=== PATIENT | female | born 1950 | race Caucasian/White ===

== ENCOUNTER 2025-08-28 14:07 | Emergency (ER) | payer MEDICARE, OTHER, SELFPAY ==
--- OUTSIDE RECORDS SUMMARY | 2025-08-28 14:21 | XMS_ITS | Data Portability ---
Author Organization JORGE - Nicolás Lau [facility] [place] Address [address] JORGE Whitman [address] Assessment Encounter Date Assessment Date Assessment LastModified by Organization Details LastModified Time 01/16/2025 01/16/2025 A total of 60 minutes were spent in direct patient care, examination and charting for this visit. [email or web address] Not available 01/16/2025 21:01:08 02/13/2025 02/13/2025 A total of 45 minutes were spent in direct patient care, examination and charting for this visit. [email or web address] Not available 02/22/2025 02:26:24 Plan of Treatment Reminders Order Date Submit Date Provider Last Modified By Organization Details Last Modified Time Details Appointments None recorded . Lab surgical patholog y study 2024 025 [facility], [address], [address], [place], [address], 5 19:08:02 lipid panel, blood 2024 025 [facility], [address] [facility], [place], [address], 5 05:36:12 CBC 2024 025 [facility], [address] [facility], [place], [address], 5 04:46:48 CMP, serum or plasma 2024 025 [facility], [address], [place], [address], 04:46:48 ESR (erythro cyte sediment ation rate), blood [email or web address] [facility], [address], [place], [address], 21:48:05 C-reacti ve protein, quantita tive, serum or plasma [email or web address] [facility], [address], [place], [address], 14:05:16 Referral medical massage - Please call patient to schedule appointm ent. Thank you! 2024 [email or web address]; Ana Atwood, [address], [place], [address], 20:41:05 general surgeon referral [email or web address] [facility], [address], [place], [address], 00:24:43 counseli lisa referral - 74yo F. Recent grief reaction with family dynamic and stressor s precedin g the of her mother, followed by the of her mother. Desires counselchio gonzalez. 2024 025 [email or web address] Kasandra Hamm, [address], [address], [place], [address], 21:47:56 Procedures None recorded . Surgeries None recorded . Imaging MRI, lower extremit y, w/wo contrast - L medial thigh firm mass measurin g 1.5x2cm approxim ately. Unclear etiology . Evaluate for sarcoma vs. lipoma vs. other. No overlyin g skin changes. 2024 025 [facility], [address] , [place], [address], 16:03:26 Medication Orders amlodipi ne 5 mg tablet 2024 025 [facility][id number], [address] [facility], [place], [address], 18:22:07 losartan 100 mg tablet 2024 025 [facility] #[id number], [address] [facility], [place], [address], 18:22:07 losartan 100 mg tablet 2024 025 [facility] #[id number], [address] [facility], [place], [address], 21:14:23 Patient TargetsNo targets recorded. Patient Instructions Encounter Date Encounter Id Patient Instructions Last Modified By Organization Details Last Modified Time 01/16/2025 [id number] You were seen in clinic today by Dr. Flannery for the following concerns: 1. Rectal bleeding - I have sent labs to [facility], including blood counts, electrolytes and inflammatory markers. I have also referred you to Dr. Juan Jose Colorado for colonoscopy. 2. Neck stiffness/pain - I have referred you for medical massage with Ana Garber. 3. Complicated Grief - I have referred you to Nimo Hamm for counseling. Please follow-up with Dr. Flannery in 1-2 months for follow-up, at which time we will remove the skin lesion on your back. Please see your updated medication list, printed on a wallet-sized card for easy reference. This was updated today and reflects any medication changes or new medications from today's appointment. [email or web address] Not available 01/16/2025 14:23:11 02/13/2025 [id number] We discussed a v ariety of topics today. Here is where we landed on them. :) 1. Atorvastatin for high cholesterol: We are going to check your cholesterol and see where it is at. I have sent a lab to [facility]. You need to be fasting for this test, so go to the hospital any day (Mon-Sat) in the morning. It is ok to have black coffee or tea. For now, stay on Atorvastatin 20mg daily and we will see if this needs to be increased or changed once we have updated cholesterol levels. 2. Calcium and Vitamin D: I recommend 1200mg of Calcium daily and 5593-2464 IU of Vitamin D daily. 3. Hand Cramping: I suspect that your hand cramping when overusing it (such as chopping a whole roast) is due to electrolyte imbalances (low potassium, low magnesium) and/or dehydration. Both of these are more likely to happen with Hydrochlorothiazide diuretic, which you take for blood pressure. We are going to stop this medication (see below). I recommend you contine on a daily potassium supplement (20 mEq daily) and a daily Magnesium supplement. 4. High Blood Pressure: STOP Losartan-HCTZ combination pill. START increased dose of Losartan 100mg daily (sent to [facility]) HOLD amlodipine for the next week while monitoring your blood pressure. If BP >140/90, add back the Amlodipine 5mg daily and call the clinic or message the portal to let me know. If BP <140/90, just continue on the Losartan only. 5. Shortness of breath on an incline: I am not particularly concerned about this symptom, because it has been stable for you for years without worsening. However, if it began to worsen, I would recommend you to see a side seam machine operator (heart doc) and get an exercise stress test done. I suspect that if you practice belly breathing, breathing in through your nose and out through your mouth, the efficiency of your breathing would improve and you may not feel as short of breath on an incline. 6. Left Inner Thigh Mass: I am uncertain what is causing this fullness/mass in this area. I will reach out to Dr. Chun (radiologist) and get a recommendation for CT scan versus MRI to evaluate this area. I suspect he will want an MRI. I will call you when I have this information and will place the order up at [facility]. 7. Colonoscopy: You have a scheduled colonoscopy with Dr. Colorado next week. I will call to get the results of this when it has been completed. 8. Skin Findings: You have a few benign-appearing skin lesions on your right neck, chest area. Schedule back in clinic in the coming weeks to have a punch biopsy of the skin lesion on your back. 1 Not available 02/22/2025 02:05:44 Reason for Referral General Surgeon Referral for Gastrointestinal hemorrhage Referring Physician: Roxy Flannery [facility], Encounter Date: 01/16/2025 Counseling Referral for Grie f finding 74yo F. Recent grief reaction with family dynamic and stressors preceding the of her mother, followed by the of her mother. Desires counseling. Referring Physician: Roxy Flannery [facility], Encounter Date: 01/16/2025 Medical Massage for Chronic neck pain Please call patient to schedule appointment. Thank you! Referring Physician: Roxy Flannery [facility], Encounter Date: 01/16/2025 Results Created Date Observation Date Name Description Value Unit Range Abnormal Flag Note LastModifiedBy Organization Detail LastModifiedTime 04/09/2004/17/2025 PATHO LOGY REPOR T . COMMEN T Mater ial submi tted: . back - UPPER BACK RIGHT SIDE Not Available [facility] ([facility]) [address], [place], [address], 04/17/2025 19:08:02 04/09/2004/17/2025 PATHO LOGY REPOR T . 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 Note: The findi ngs are nonsp ecifi c, but given the provi ded clini edinson infor matio n of diso rder of pigme ntati on, the palm es could be cause d by post- infla mmato ry pigme ntary alter ation . No pigme nted neopl asm or diagn ostic derma titis is ident ified . Secti ons show an essen tiall y mesfin l epide rmis. There is super ficia l derma l pigme nt incon tinen ce with littl e to no infla mmati on. A PAS stain is negat enrico for funga l hypha e (cont rol posit enrico). A Melan -A immun ohist ochem ical stain is used to highl ight melan ocyte s. This shows only scatt ered melan ocyte s with no atypi edinson melan ocyti c proli ferat ion ident ified . Addit ional deepe r secti ons were exami delfina. * This test was devel oped and the perfo rmanc e polo cteri stics were valid ated by [facility]. It has not been clear ed or appro geni by the U.S. Food and Drug Admin istra tion. MRV 04/17 1509 Local Not Available [facility] ([facility]) [address] [facility], [place], [address], 04/17/2025 19:08:02 04/09/2004/17/2025 PATHO LOGY REPOR T . COMMEN T Jewel ordonez d: . Filiberto Griffin MD, [place] topat holog ist NPI- [id number] Not Available [facility] ([facility]) [address] [facility], [place], [address], 04/17/2025 19:08:02 04/09/2004/17/2025 PATHO LOGY REPOR T . COMMEN T Gross descr iptio n: . Recei geni in forma yue label ed with two patie nt ident ifier s and tors o, upper back right side per requi sitio n, and consi sts of a 0.[address] punch of skin excis ed to the depth of 0.1 cm. The surfa ce of the skin is stevens, granu lar, and wrink led. The speci men is inked and submi tted in toto in casse tte A1. (DL:c [id number]) /GAVIN 04/14 2309 Local Not Available [facility] ([facility]) [address] [facility], [place], [address], 04/17/2025 19:08:02 04/09/20 25 04/17/2025 PATHO LOGY REPOR T . COMMEN T Patho logis t provi ded ICD-1 0: L81.9 Not Available [facility] ([facility]) [address] [facility], [place], [address], 04/17/2025 19:08:02 04/09/2004/17/2025 PATHO LOGY REPOR T . COMMEN T CPT . 01737 1, W2006 1 Not Available [facility] ([facility]) [address] [facility], [place], [address], 04/17/2025 19:08:02 03/03/20 25 03/03/2025 MRI, lower extre mity, w/wo contr ast No observ ation record ed. [facility] [address] [facility], [place], [address], 03/08/2025 14:37:17 06/28/20 25 06/28/2025 MAMMO , scree jaida, digit al, bilat eral, w/ CAD No observ ation record ed. [email or web address] [facility] [address] [facility], [place], [address], 07/03/2025 12:14:40 07/03/20 25 07/03/2025 MAMMO , diagn ostic , tomos ynthe sis, unila teral No observ ation record ed. [facility] [address] [facility], [place], [address], 07/04/2025 20:44:24 07/03/20 25 07/03/2025 US, breas t, unila teral No observ ation record ed. [facility] [address] , [place], [address], 07/04/2025 20:44:25 07/06/20 25 07/06/2025 MRI, breas t, unila teral , w/wo contr ast No observ ation record ed. [facility] [address] , [place], [address], 07/06/2025 23:04:33 07/10/20 25 07/10/2025 stere otact ic breas t biops y (PROC ) No observ ation record ed. [facility] [address], [place], [address], 07/14/2025 13:21:53 07/10/20 25 07/10/2025 stere otact ic breas t biops y (PROC ) No observ ation record ed. [facility] [address], [place], [address], 07/14/2025 13:21:38 07/16/20 25 07/10/2025 stere otact ic breas t biops y (PROC ) No observ ation record ed. [email or web address], [place], [address], 07/20/2025 10:29:13 07/23/20 25 07/23/2025 US, breas t, unila teral No observ ation record ed. [facility] [address] [facility], [place], [address], 08/01/2025 21:29:40 08/06/20 25 08/06/2025 DEXA, axial skele ton + verte bral fract ure asses sment No observ ation record ed. [facility] [address] [address], [place], [address], 08/08/2025 14:08:05 Result Notes None recorded. Problems Name Problem SNOMED Code Status Onset Date Resolution Date Notes Provider Name and Address Organization Details Recorded Time Late insomnia 332270761 Active 2024 Difficulti es with sleep maintenanc e. Intermitte nt use of Ambien. Didn't tolerate Lunesta, ER Ambien or Melatonin due to AM grogginess . 01/16/25: Recommend trial of Valerian Root. May benefit from Trazodone 25-50mg qHS in the future if not improving [place] [address], [place], [address] 5 02:24:45 Gastrointe stinal hemorrhage 22849719 Active 202401/16/25: Referred for colonoscop [place] [address], [place], [address] 5 21:14:57 Grief finding 238842913 Active 2024 Referred for counseling , Nimo Hamm (01/16/25) [place] [address], [place], [address] 5 21:15:06 Essential hypertensi on 07588327 Active 2024 Changed to single agent Losartan 100mg daily as of 02/13/25. Previously on HCTZ 25mg and amlodipine 5mg along with lower dose of Losartan (50mg[place] [address], [place], [address] 5 02:24:28 Hyperlipid emia 79464813 Active 2024 On Atorva 20mg daily. 02/13/25 repeat lipids ordered. Repeat lipids reviewed 05/01/25 without any need for change in Atorvastat in dose. LDL 109. HDL 82. [place] [address], [place], [address] [place] [address] 5 14:50:18 Mass of lower limb 854038894 Active 2024 Left medial thigh mass roughly 1.5x2cm. Referred for MRI O 02/13/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 Referred 07/14/[address] Iglesias, [place] [address], [place], [address] [place] [address] 5 13:20:39 Osteoporos is 07395603 Active 2024 [facility] 08/06/25: L-spine, Tscore -2.6 (osteoporo sis) Femur neck, Tscore -2.2 (osteopeni a) Total hip, Tscore -1.9 (osteopeni a) FRAX: 10-year major fracture risk 13%. 10-year hip fracture risk 3.2%. IMPRESSION : [place] [address], [place], [address] [place] [address] 5 12:20:54 Notes:Some problems listed i n Documents: #[id number], #[id number] could not be added to this patient's chart. Please review these documents and add these problems to the patient's chart manually as needed. Problem Notes None recorded. Procedures Surgical History Date Name Laterality Status Provider Name and Address Organization Details Recorded Time 04/09/2025 [place] [address], [place], [address] 04/13/2025 11:41:32 Imaging Results None recorded. Procedure Notes None recorded. Medical Equipment None Reported. Allergies Allergen ID Allergen Name Allergen Category Reaction Reaction Severity Criticality Documentation Date Start Date Code Code System Note Provider Name and Address Organization Details Recorded Time 2241 Substance with sulfonami de structure and antibacte rial mechanism of action (substanc e) medicatio n Not available Not available Not available 01/16/2025 36023 8003 SNOMED [facility] 13:17:29 2242 wheat preparati on food,medi cation Not available Not available Not available 01/16/2025 73321 52 RxNorm [facility] 13:17:37 2243 Product containin g penicilli n (product) medicatio n Not available Not available Not available 01/16/2025 85167 8001 SNOMED [facility] 13:17:49 2641 Non-stero idal anti-infl ammatory agent (substanc e) medicatio n gi bleed Not available Not available 02/13/2025 32525 5008 SNOMED [facility] 19:03:33 2642 aspirin medicatio n gi bleed Not available Not available 02/13/2025 1191 RxNorm [facility] 19:03:33 4998 acetamino phen medicatio n Not available Not available Not available 07/13/20252019 161 RxNorm Blood in BM unrec ogniz ed react ion (text : Unknmelba ramachandran, code: 31814 5006) (from exter nal sourc e) Not Available precious - External Data Service - prod 14:49:01 4999 aluminum aspirin Not available Not available Not available Not available 07/13/20252019 611 RxNorm Aller gy liste d on offic e note from PCP. unrec ogniz ed react ion (text : Unkno wn, code: 60576 5006) (from [facility]) Not Available precious - External Data Service - prod 5 14:49:01 5000 dipyridam ole medicatio n Not available Not available Not available 07/13/20252019 3521 RxNorm Aller gy liste d on offic e note from PCP. unrec ogniz ed react ion (text : Alen ramachandran, code: 21219 5006) (from [facility]) Not Available precious - External Data Service - prod 14:49:01 5001 ibuprofen medicatio n Not available Not available Not available 07/13/20252019 5640 RxNorm Aller gy liste d on offic e note from PCP. unrec ogniz ed react ion (text : Alen ramachandran, code: 85861 5006) (from [facility]) Not Available precious - External Data Service - prod 5 14:49:01 5002 metronida zole medicatio n Not available Not available Not available 07/13/20252019 6922 RxNorm React ion when consu suleiman red dye in foods unrec ogniz ed react ion (text : Alen ramachandran, code: 94606 5006) (from [facility]) Not Available precious - External Data Service - prod 14:49:01 5003 clopidogr el medicatio n Not available Not available Not available 07/13/20252019 34494 RxNorm Aller gy liste d on offic e note from PCP. unrec ogniz ed react ion (text : Unknmelba wn, code: 60001 5006) (from [facility] e) Not Available precious - External Data Service - prod 5 14:49:01 5004 Plavix medicatio n Not available Not available Not available 07/13/2025 46336 2 RxNorm Not Available precious - External Data Service - prod 5 14:51:56 5125 omeprazol e medicatio n Not available Not available Not available 07/16/2025 7646 RxNorm Not Available precious - External Data Service - prod 13:47:15 Medications Name Sig Start Date Stop Date Status Note LastModified by Organization Details LastModified Time Xanax 0.5 mg tablet 1-2 tablets twice daily as needed for severe anxiety 2024 active Not Available Not Available Not Avai lable atorvastati n 20 mg tablet TAKE ONE TABLET BY MOUTH DAILY 2024 active Not Available Not Available Not Avai lable Depo-Medrol 40 mg/mL suspension for injection Take by injection route. 2023 active Not Available Not Available Not Avai lable atovaquone 250 mg-proguani l 100 mg tablet Take 1 tablet every day by oral route. active Not Available Not Available No t Available amlodipine 5 mg tablet Take 1 tablet twice a day by oral route for 45 days. 2024 active Not Available Not Available Not Avai lable tramadol 50 mg tablet Take 1 tablet every 6 hours by oral route. 02/13 completed Not Available Not Available Not Available calcium citrate 250 mg tablet Take 2 tablets by oral route in the morning. active Not Available Not Available No t Available omeprazole 20 mg capsule,del ayed release TAKE ONE CAPSULE BY MOUTH DAILY 2024 active Not Available Not Available Not Avai lable zolpidem 10 mg tablet Take 1 tablet every day by oral route. 2024 active Not Available Not Available Not Avai lable losartan 50 mg-hydrochl orothiazide 12.5 mg tablet Take 1 tablet every day by oral route. 02/13 completed Not Available Not Available Not Available losartan 100 mg tablet Take 1 tablet every day by oral route for 90 days. 2024 active Not Available Not Available Not Avai lable bupivacaine (PF) 0.25 % (2.5 mg/mL) injection solution Take 3 mL by injection route. 02/13 completed Not Available Not Available Not Available omega-3 acid ethyl esters 1 gram capsule Take 2 capsules twice a day by oral route for 30 days. 2024 active Not Available Not Available Not Avai lable magnesium active Not Available Not Cathryn ilable Not Available Co Q-10 active Not Available Not Avail able Not Available vitamin E active Not Available Not Cathryn ilable Not Available vitamin B complex active Not Available Not Available Not Available Vitamin D active Not Available Not Cathryn ilable Not Available [place] 3 active Not Available Not Avail able Not Available vitamin A-vitamin D3 5,000 unit-400 unit capsule Take by oral route. active Not Available Not Available No t Available compounded medication 2022 active Not Available Not Available Not Avai lable K1-1000 active Not Available Not Avail able Not Available Vitals Date Recorded Body height Body mass index (BMI) Body weight Heart rate Respiratory rate Oxygen saturation Body temperature Systolic And Diastolic Provider Name and Address Organization Details Last Updated DateTime 5 151.38 cm 28.1 kg/m2 97877.1 2 g 66 /min 18 /min 98 % 98.4 [degF] 128/62 mm[Hg] [facility] 5 13:16:20 Date Recorded Body height Body mass index (BMI) Body weight Heart rate Respiratory rate Oxygen saturation Body temperature Systolic And Diastolic Provider Name and Address Organization Details Last Updated DateTime 5 151.38 cm 28.3 kg/m2 73780.7 1 g 74 /min 18 /min 96 % 98.1 [degF] 133/77 mm[Hg] [facility] 5 19:03:09 Date Recorded Body height Oxygen saturation Heart rate Respiratory rate Body temperature Systolic And Diastolic Provider Name and Address Organization Details Last Updated DateTime 5 151.38 cm 95 % 74 /min 18 /min 98.2 [degF] 134/82 mm[Hg] [facility] 18:08:31 Social History None recorded. Functional Status None recorded. Mental Status None recorded. Family History Nothing Reported. Medical History No medical history recorded. Gynecological History Statement/Question Response Abnormal Pap N Current Control Method menopause Sexually Active? N Post Menopausal Bleeding N Obstetrics History GPAL:G 0 P 0 0 0 0 Immunizations Vaccine Type Date Status Note Provider Nam e and Address Organization Details Recorded Time COVID-19, mRNA, LNP-S, PF, 100 mcg/0.5mL dose or 50 mcg/0.25mL dose 2 completed Not Available [facility] 04/09/2025 17:59:27 COVID-19, mRNA, LNP-S, PF, 30 mcg/0.3 mL dose 1 completed Not Available [facility] 04/09/2025 17:59:27 COVID-19, mRNA, LNP-S, PF, 30 mcg/0.3 mL dose 1 completed Not Available [facility] 04/09/2025 17:59:27 COVID-19, mRNA, LNP-S, PF, 30 mcg/0.3 mL dose 1 completed Not Available [facility] 04/09/2025 17:59:27 COVID-19, mRNA, LNP-S, PF, 50 mcg/0.5 mL 3 completed Not Available [facility] 04/09/2025 17:59:27 COVID-19, mRNA, LNP-S, PF, brannon-sucrose, 30 mcg/0.3 mL 4 completed Not Available [facility] 04/09/2025 17:59:27 IPV 3 completed Not Available [facility] 04/09/2025 17:59:27 Influenza, adjuvanted, quadrivalent, PF 0 completed Not Available [facility] 04/09/2025 17:59:27 Influenza, adjuvanted, quadrivalent, PF 2 completed Not Available [facility] 04/09/2025 17:59:27 Influenza, adjuvanted, quadrivalent, PF 3 completed Not Available [facility] 04/09/2025 17:59:27 Influenza, high-dose, trivalent, PF 8 completed Not Available [facility] 04/09/2025 17:59:27 Influenza, high-dose, trivalent, PF 9 completed Not Available [facility] 04/[facility] 17:59:27 Influenza, recombinant, trivalent, PF 4 completed Not Available [facility] 04/09/2025 17:59:27 OPV, trivalent 2 completed Not Available [facility] 04/09/2025 17:59:27 Pneumococcal conjugate PCV 13 8 completed Not Available [facility] 04/09/2025 17:59:27 Td (adult), 2 Lf tetanus toxoid, preservative free, adsorbed 2 completed Not Available [facility] 04/09/2025 17:59:27 Td (adult), 2 Lf tetanus toxoid, preservative free, adsorbed 1 completed Not Available [facility] 04/09/2025 17:59:27 Tdap 1 completed Not Available [facility] 04/09/2025 17:59:27 typhoid, ViCPs 3 completed Not Available [facility] 04/09/2025 17:59:27 typhoid, unspecified formulation 6 completed Not Available [facility] 04/09/2025 17:59:27 typhoid, unspecified formulation 9 completed Not Available [facility] 04/09/2025 17:59:27 typhoid, unspecified formulation 7 completed Not Available [facility] 04/09/2025 17:59:27 typhoid, unspecified formulation 9 completed Not Available [facility] 04/09/2025 17:59:27 yellow fever live 1 completed Not Available [facility] 04/09/2025 17:59:27 Past Encounters Encounter ID Performer Location Encounter Start Date Encounter Closed Date Diagnosis/Indication Diagnosis SNOMED-CT Code Diagnosis ICD10 Code Diagnosis IMO Codes Diagnosis Note [id number] Roxy Flannery MD [facility] [address] [facility] [place] [address] 01/16/2025 13:02:15 01/16/2025 14:27:40 Gastrointestinal hemorrhage [id number] K62.5 [id number] Patient remotely diagnosed with UC following colonoscop y by Dr. Cueva (>15 years prior). She subsequent ly had multiple colonoscop ies that did not reveal UC and was eventually told she does not have UC by Dr. Moody. She has a wheat intoleranc e, grade 3 hemorrhoid s and a history of hemorrhoid al bleeding. She reports smaller caliber stools for the past 2.5 months, which is a new finding and has not accompanie d bouts of hemorrhoid al bleeding or hemorrhoid al symptoms in the past. No family hx of colon cancer. Last colonoscop y [address] Moody. 01/16/25 PLAN:- Check labs (CBC, CMP, ESR and CRP)- Refer for colonoscop y- Recommend going back to gluten free, wheat free diet and reducing sugar, as she has noticed reduced hemorrhoid al symptoms when she is doing clean eating- Patient has also previously benefitted from a slippery elm supplement , provided by Dr. Lopez, which she has recently started back on to see if this reduced hemorrhoid al symptoms and bleeding Grief finding [id number] F43.20 [id number] Will refer to Nimo Hamm for counseling . Chronic neck pain [id number] 107 M54.2 G89.29 [id number] Refer for medical massage. 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 Able to get to bed, but struggles to remain asleep, often waking 1-2 hours after sleep initiation and often waking and unable to go back to sleep after 4.5-5 hours. Has used Ambien intermitte ntly, mostly when traveling and unable to optimize her sleep surroundin gs. Hopeful for a supplement that could help her to stay asleep throughout the night, ideally getting 6-8 hours of sleep. Has trialed Melatonin, which has caused her to feel groggy in the AM. Lunesta caused AM grogginess as well. ER Ambien also caused fatigue in the AM.- Could trial Valerian root, OTC supplement - May benefit from Trazodone at low dose (25-50mg qHS) if Valerian root is not effective for insomnia with difficulti es maintainin g sleep. [id number] Roxy Flannery MD [facility] [address] [facility] [address] 02/13/2025 18:53:18 02/13/2025 20:21:27 Gastrointestinal hemorrhage [id number] K62.5 [id number] Patient remotely diagnosed with UC following colonoscop y by Dr. Cueva (>15 years prior). She subsequent ly had multiple colonoscop ies that did not reveal UC and was eventually told she does not have UC by Dr. Moody. She has a wheat intoleranc e, grade 3 hemorrhoid s and a history of hemorrhoid al bleeding. She reports smaller caliber stools for the past 2.5 months, which is a new finding and has not accompanie d bouts of hemorrhoid al bleeding or hemorrhoid al symptoms in the past. No family hx of colon cancer. Last colonoscop y [address] Moody. 01/16/25 (PRIOR)- Check labs (CBC, CMP, ESR and CRP)- Refer for colonoscop y- Recommend going back to gluten free, wheat free diet and reducing sugar, as she has noticed reduced hemorrhoid al symptoms when she is doing clean eating- Patient has also previously benefitted from a slippery elm supplement , provided by Dr. Lopez, which she has recently started back on to see if this reduced hemorrhoid al symptoms and bleeding 02/13/25 PLAN:- Has scheduled colonoscop y with [facility] general surgery next week- Plan for hemorrhoid procedure at that time as well- Will obtain records, when available Grief finding [id number] F43.20 88778 In with online counselor. Has found this helpful. Late insomnia [id number] F51.09 79653 Insomnia with early waking. Able to get to bed, but struggles to remain asleep, often waking 1-2 hours after sleep initiation and often waking and unable to go back to sleep after 4.5-5 hours. Has used Ambien intermitte ntly, mostly when traveling and unable to optimize her sleep surroundin gs. Hopeful for a supplement that could help her to stay asleep throughout the night, ideally getting 6-8 hours of sleep. Has trialed Melatonin, which has caused her to feel groggy in the AM. Lunesta caused AM grogginess as well. ER Ambien also caused fatigue in the AM.- Could trial Valerian root, OTC supplement - May benefit from Trazodone at low dose (25-50mg qHS) if Valerian root is not effective for insomnia with difficulti es maintainin g sleep. 02/13/25 PLAN:- Trial CALM with melatonin, L-thionine , JOSE ANGEL for sleep Hyperlipidemia [id number] E78.49 [id number] Currently on Atorvastat in 20mg daily. Is concerned about whether or not this is a sufficient dose. 02/13/25 PLAN:- Check fasting cholestero l- Determine ASCVD 10-year risk and whether or not statin needs to be intensifie d Essential hypertension [id number] I10 76767 Well controlled at this time, but with adverse side effect of muscle cramping that may be due to dehydratio n and/or electrolyt e derangemen t, which would be made worse with HCTZ. Will therefore try to come off of HCTZ. Current regimen prior to changes made today include: Losartan 50mg - HCTZ 25mg combinatio n pill and Amlodipine 5mg daily. 02/13/25 PLAN:STOP Losartan-H CTZ combinatio n pill.START increased dose of Losartan 100mg daily (sent to [facility])HO LD amlodipine for the next week while monitoring your blood pressure.I f BP >140/90, add back the Amlodipine 5mg daily and call the clinic or message the portal to let me know.If BP <140/90, just continue on the Losartan only. Mass of lower limb [id number] R22.42 [id number] Patient found to have mass of medial L thigh. Concerning for deep lipoma vs. sarcoma vs. other. Will need to further evaluate with MRI of the Lower extremity with and without contrast. On palpation, 2x1.5cm in size. Actinic keratosis [id number] L57.0 514907 Concern for AK on R thoracic back. Will RTC for punch biopsy for same in coming weeks. Noted to have two SKs. Benign in appearance . Reassuranc e provided. Cramp [id number] R25.2 11234 See HTN above. Trying to come off of HCTZ to see if this improves symptom [id number] Roxy Flannery MD [facility] [address] [place] [address] [place] [address] 04/09/2025 17:57:47 04/09/2025 18:47:23 Hypertensive disorder [id number] I10 [id number] 02/13/25 (PRIOR):We ll controlled at this time, but with adverse side effect of muscle cramping that may be due to dehydratio n and/or electrolyt e derangemen t, which would be made worse with HCTZ. Will therefore try to come off of HCTZ. Current regimen prior to changes made today include: Losartan 50mg - HCTZ 25mg combinatio n pill and Amlodipine 5mg daily.STOP Losartan-H CTZ combinatio n pill.START increased dose of Losartan 100mg daily (sent to [facility])HO LD amlodipine for the next week while monitoring your blood pressure.I f BP >140/90, add back the Amlodipine 5mg daily and call the clinic or message the portal to let me know.If BP <140/90, just continue on the Losartan only. 04/09/25 PLAN:- Refill Amlodipine 5mg daily and Losartan 100mg daily for 90 days Pigmented skin lesion of uncertain nature of trunk [id number] L81.9 [id number] Punch biopsy sent today. Health Concerns Section Related Observation LastModified by Organization Detai ls LastModified Time None Recorded Concern Status LastModified by Organization Details LastModified Time None Recorded Advance Directives Directive None Recorded Payers Insurance Date Sequence Insurance Name Policy Number Policy Red Covered Member ID Red Member ID Guarantor Name 04/13/2025 2 [facility] [id number] Geetha Cisneros [id number] Geetha Blayne 01/16/2025 1 *SELF PAY* Sa mamadou Cisneros 02/13/2025 1 [place]ICARE) Geetha Cisneros [id number] [facility] 04/06/2025 1 [place] Geetha Cisneros [id number] Geetha [facility] Notes Date Note Type Note Provider Name and Address Organization Details Recorded Time 01/17/20 text/htm emilie Cisneros is a 74 year old female who presents to [facility]. She is transferring care from Dr. Ortega at [facility]. PMHx:1. Family hypercholesterolemia - LDL >200 off of statin2. Primary insomnia3. GARRET. Dx 2013. Previously on CPAP. No longer, cannot tolerate mask. 15-20lb difference.4. Reina's metatarsalgia5. Otosclerosis of the LEFT ear - s/p 3 surgeries6. HTN7. Mild mitral valve regurgitation - on TTE . GERD9. Ulcerative Bfqevbe30. Osteoporosis. Last CT BMD 06/2024. No recent DEXA.11. Cupipcvbtdx28. Superior semicircular canal dehiscence syndrome - Dx at [facility]13. Calcific tendonitis of L shoulder - MRI 04/20/24. Seen by Dr. Younger. Referred to PT. PSHx:1. 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 No recreational drugs. Family Hx:1. Mother, [place] @ age 802. Mother osteoporosis3. Mother Diabetes mellitus4. Father carcinoma of the lung, age 875. Father, CABG x5 vessel, age 806. Brother, metastatic cancer HCM:- Last CT bone mineral density 06/2024 @ [facility]. May benefit from DEXA vs. continued CT BMD- Cervical cancer screening: May be due for pap smear.- Colon cancer screening: Colonoscopy 10/2017. No family hx. May benefit from Cologuard. Acute Concerns: INTERNAL BLEEDING:BRBPR since October,. If she takes NSAIDs or ASA she bleeds. If she takes wheat she bleeds. Accidnetal ingestion. Bright red blood around. Some mucous. Stool is all narrow. she hasn't had solid stools for years. S/p parasitic infection. She has had [address] Moody went in, she looked pristine. She sees blood 1/2 the time. She was diagnosed with ulcerative colitis. Then she saw Maxx Lopez. She is on a supplement with slippery elm. She has had a change in diet, but this was AFTER. Longstanding loose stools. ACUTE GRIEF REACTION:Patient has acute grief reactions after the passing of her mother. Her sister and her have also become estranged during this period of time in which her mother was ill. There are legal stressors around her sister attempting to exploit her mother's estate and patient has been under significant stress surrounding these events. MUSCULAR TENSION:Muscular tension in her neck and shoulders. and not sleeping well. Massage has been great[facility]. She would like a referral for medical massage. INSOMNIA:Sleep and sleeping x5 hours. She was taking Ambien while travelling. She hasn't taken it since getting back. Her Generally can fall asleep. She tried a lunesta once. She can fall asleep if she smokes marijuana. She gets paranoid, lives alone. [place]. If she drinks alcohol, she is more likely to take Ambien. Goes to bed irregularly. Goes to bed between 10-12am, gets up at 4-5am. Once she is up, she's up. Naps during the day at times, though this does not change [place] [address], [place], [address], JORGE [facility] 01/26/2025 11:58:34 02/14/20 25 text/htm l Patient presents to clinic for multiple concerns. HYPERLIPIDEMIA:Patient is currently on Atorvastatin 20mg daily. She has not had recent cholesterol tests. We will obtain fasting labs and see if this dose of statin is effective, or if she would benefit from a higher intensity statin regimen. Tolerating statin well. BONE HEALTH:Patient wonders about optimal supplement dosing for Calcium and Vitamin D given that she is post-menopausal. HAND CRAMPING:Patient reports hand cramps with use. Specifically when chopping a whole roast or doing other stamina-requiring activities that involve hand use. She is on HCTZ for HTN. She notes some muscle cramps. We discussed that this may be due to electrolyte derangement (hypomag, hypok) associated with HCTZ use and/or dehydration. When not cramping due to overuse, she has full ROM of the joints of the bilateral hands and wrists. She does not have any triggering fingers etc. HYPERTENSION:Currently on HCTZ-Losartan combination pill (Losartan 50mg, HCTZ 25mg). She is also on Amlodipine. Goal BP is <140/90. Currently well controlled on current regimen. No exertional CP, dyspnea or exercise intolerance. She is very physically active, long hikes, treks etc. She often gets SOB when initiating exercising, but this has been longstanding since her youth and has not worsened recently or over time. ? Inefficient breathing. LEFT INNER THIGH MASS:Patient has noticed a left inner thigh mass. She is not certain when it first showed up, but noticed in in the past few months. Since first noticing it, she has not noticed any significant interval growth. No symptoms of pain, overlying skin changes etc. SKIN LESIONS:Patient has a few benign-appearing skin lesions on her right neck and mid-chest area. She also has a spot on the R thoracic back, to the right of midline that becomes slightly crusted/scabbed over. Concerning for AK. Discussed returning to clinic for punch biopsy. UPCOMING COLONOSCOPY / RECTAL BLEEDING / HEMORRHOIDS:Patient was referred to general surgery for colonoscopy and rectal bleeding. She has a history of hemorrhoids, which will also be addressed at the time of this surgery. Patient is scheduled for next week. We will obtain records s/p colonoscopy [place] [address] [address], [place], [address], [facility] 02/22/2025 02:26:28 04/09/20 25 text/htm l ROS as noted in the HPI Geetha Cisneros is a 74yo F who presents for punch biopsy of bothersome, pigmented skin lesion on her right back. This skin lesion has been itchy for years, scabbing with slough when scratched and growing back when forcefully removed with scratching/excoriation. It has not previously been biopsied. Patient was having some blood in stools. She was referred for colonoscopy and also underwent hemorrhoid treatment at the same time. She has gotten back on Ultraclear, a naturopathic supplement recommended for her by Dr. Lopez, and is no longer having blood in her stools. She has gained 8lbs while utilizing this supplement and is trying to lose weight. Patient has HTN. She is in need of a refill of her BP meds, including Amlodipine [place] [address] [address], [place], [address], [facility] 04/13/2025 11:43:09 OBGyn Episode No OBEpisode recorded.
[2025-08-28 14:51] VITALS: BP 144/64; PULSE 76; RESP 17; TEMP 37.4; O2SAT 98; BMI 27.9
[2025-08-28 16:07] LABS: Add Manual Diff / Slide Review NO; Hematocrit 39.4 % (36-46); Hemoglobin 13.3 g/dL (12.0-16.0); Lymphocytes Absolute Auto 2700 /uL (1100-4500); Mean Corpuscular HGB Conc 33.9 % (30-36); Mean Corpuscular Hemoglobin 28.1 PG (26-34); Mean Corpuscular Volume 82.9 fL (80-100); Platelet Count 250 X10^3/uL (150-400)
[2025-08-28 16:12] LABS: Lactate (Lactic Acid) 1.1 mmol/L (0.7-2.1)
[2025-08-28 16:14] LABS: Alanine Aminotransferase 24 IU/L (<35); Albumin 4.9 g/dL (3.5-5.0); Albumin Globulin Ratio 1.6 (1.0-2.8); Alkaline Phosphatase 87 U/L (38-126); Blood Urea Nitrogen 18 mg/dL (7-17); Calcium 9.9 mg/dL (8.4-10.2); Carbon Dioxide 28 mmol/L (22-32); Chloride 105 mmol/L (98-107); Estimated Glomerular Filt Rate > 60 mL/min (>60); Globulin 3.0 g/dL (1.7-4.1); Glucose 96 mg/dL (70-99); HEMOLYSIS < 15 (0-50); Potassium 3.8 mmol/L (3.4-5.1); Sodium 142 mmol/L (137-145); Total Protein 7.9 g/dL (6.3-8.2)
--- NOTE | 2025-08-28 16:27 | ED_ITS ---
HPI - Wound/Laceration General Chief Complaint: Wound/Laceration Stated Complaint: possible right Breast Infection, cancer patient Time Seen by Provider: 08/28/25 16:23 Source: patient Mode of arrival: Family Vehicle History of Present Illness HPI narrative: 75-year-old female history of breast cancer status post biopsy 3 weeks ago presents with right breast pain specifically around the areola feels more swollen and tender to touch over the last few days on 08/06/25. Patient denies fever chills body aches chest pain shortness breath leg pain leg swelling. She has an upcoming appointment on September 18 to see the oncologist again and is on her way to [place] for trip and wanted to be safe nothing acutely was going on. Other than what is stated 14 point review system is negative. Related Data Allergies Allergy/AdvReac Type Severity Reaction Status Date / Time Penicillins Allergy Rash Verified 08/28/25 14:53 Sulfa (Sulfonamide Allergy Rash Verified 08/28/25 14:53 Antibiotics) NSAIDS (Non-Steroidal AdvReac bleeding Verified 08/28/25 14:53 Anti-Inflamma Review of Systems Review of Systems ROS Unobtainable: All systems reviewed & are unremarkable except as noted in HPI and below Patient History Social History Smoking Status: Former smoker Smoking Status: Former smoker tobacco type: cigarettes Exam Narrative Exam Narrative: GENERAL: [75] year old patient appears stated age. Well-developed patient, in mild distress. HEAD: Atraumatic. Normocephalic. EYES: Pupils equal round and reactive. Extraocular motions intact. No scleral icterus. No injection or drainage. NECK: Trachea midline. Non tender EXTREMITIES: No edema or joint tenderness. BACK: Nontender without deformity or crepitance. No flank tenderness. NEURO: AOx3. SKIN: No rash or erythema of visible areas Initial Vital Signs Initial Vital Signs: Vital Signs Temperature 99.3 F 08/28/25 14:51 Pulse Rate 76 08/28/25 14:51 Respiratory Rate 17 08/28/25 14:51 Blood Pressure 144/64 H 08/28/25 14:51 Pulse Oximetry 98 08/28/25 14:51 Oxygen Delivery Method Room Air 08/28/25 14:51 Course Orders Ordered: ED Orders 08/28/25 15:40 Blood Culture Stat CBC Auto Diff [Complete Blood Count AUTO DIFF] Stat CMP [Comprehensive Metabolic Panel] Stat Lactate (Lactic Acid) Stat 08/28/25 17:09 breast RT limited Stat Vital Signs Vital signs: Vital Signs - 8 hr 08/28/25 14:51 08/28/25 17:06 08/28/25 17:08 Temperature 99.3 F Pulse Rate 76 69 69 Respiratory Rate 17 Blood Pressure 144/64 H Pulse Oximetry 98 92 98 Oxygen Delivery Method Room Air 08/28/25 17:08 08/28/25 17:30 08/28/25 17:31 Temperature Pulse Rate 63 59 L Respiratory Rate 16 Blood Pressure 174/73 H Pulse Oximetry 99 98 Oxygen Delivery Method Room Air 08/28/25 17:31 Temperature Pulse Rate Respiratory Rate Blood Pressure 150/66 H Pulse Oximetry Oxygen Delivery Method MDM - Wound/Laceration Lab Data 08/28/25 15:40 08/28/25 15:40 Labs: Lab Results 08/28/25 Range/Units 15:40 WBC 7.0 (4.5-11.0) X10^3/uL RBC 4.75 (4.0-5.2) X10^6/uL Hgb 13.3 (12.0-16.0) g/dL Hct 39.4 (36-46) % MCV 82.9 (80-100) fL MCH 28.1 (26-34) PG MCHC 33.9 (30-36) % RDW 13.6 (11.6-14.8) % Plt Count 250 (150-400) X10^3/uL Neut % (Auto) 52.6 (50-75) % Lymph % (Auto) 38.8 (25-40) % Concho % (Auto) 7.2 (3-14) % Eos % (Auto) 1.0 L (2-4) % Baso % (Auto) 0.4 (0-2) % Neut # (Auto) 3700 (8659-5615) /uL Lymph # (Auto) 2700 (1299-9055) /uL Concho # (Auto) 500 (0-900) /uL Eos # (Auto) 100 (0-450) /uL Baso # (Auto) 0 (0-100) /uL Sodium 142 (137-145) mmol/L Potassium 3.8 (3.4-5.1) mmol/L Chloride 105 (98-107) mmol/L Carbon Dioxide 28 (22-32) mmol/L BUN 18 H (7-17) mg/dL Creatinine 0.71 (0.52-1.04) mg/dL Estimated GFR > 60 (>60) mL/min BUN/Creatinine Ratio 25.4 H (6-22) Glucose 96 (70-99) mg/dL Lactate 1.1 (0.7-2.1) mmol/L Calcium 9.9 (8.4-10.2) mg/dL Total Bilirubin 0.2 (0.2-1.3) mg/dL AST 28 (14-36) IU/L ALT 24 (<35) IU/L Alkaline Phosphatase 87 (38-126) U/L Total Protein 7.9 (6.3-8.2) g/dL Albumin 4.9 (3.5-5.0) g/dL Globulin 3.0 (1.7-4.1) g/dL Albumin/Globulin Ratio 1.6 (1.0-2.8) Imaging Data Extremity x-ray #1: Radiologist's Impression: [address] [address] Ultrasound Report Signed Patient: Geetha Cisneros MR#: [id number] : 1950 Acct:[id number] Age/Sex: 75 / F Date of Service: 08/28/25 Loc: ED Accession Number: [id number] Procedure: US breast RT limited Ordering Provider: Juan Jose Norman D.O. US breast RT limited: 08/28/2025. BI-RADS: 0 CLINICAL: 75-year old female for right diagnostic breast ultrasound. Tyrer- Cuzick lifetime risk of 3.1%. PRIOR EXAMS No prior examinations available. ULTRASOUND TECHNIQUE TARGETED Right Breast Ultrasound: Real-time ultrasound exam was performed focused to area of clinical and/or imaging concern. Real-time contreras scale and color doppler imaging of the area of clinical interest was performed with image documentation. ULTRASOUND FINDINGS Right: Outer at 8:30, Retroareolar, measuring 1.7 x 1.6 x 1.9 cm: There is an irregularly shaped, indistinct, hypoechoic mass. There is mild vascularity. IMPRESSION: Right (Mass): Outer at 8:30, Retroareolar, measuring 1.7 x 1.6 x 1.9 cm * Incomplete - Needs additional imaging evaluation. RECOMMENDATIONS Right: Outer at 8:30, Retroareolar * Further evaluation with diagnostic mammography and diagnostic ultrasound (Overall, findings are suspicious for a malignant process given reported history of previous cancer. Outpatient bilateral diagnostic mammogram and bilateral diagnostic breast ultrasound recommended for further evaluation.). COMMENTS: Findings and recommendations were discussed with Dr. Norman at [address] Reed. OVERALL ASSESSMENT CATEGORY BI-RADS-0: Incomplete - Need Additional Imaging Evaluation. ELECTRONICALLY SIGNED: Ramon Reed M.D. on 08/28/2025 at 09:27:05 PM PT Interpreting Station ID: [id number] [facility] Narrative Medical decision making narrative: All lab work, vital signs, nurse triage note, medication list, previous ER visits, and all imaging studies reviewed. WBC 7.0 hemoglobin 13.3 platelet 250 sodium 142 potassium 3.8 chloride 105 CO2 20 BUN 18 creatinine 0.71 glucose 96 lactic acid 1.1 LFTs normal. Ultrasound shows Right breast mass further evaluation with diagnostic mammography and diagnostic ultrasound bilaterally recommended. I offered CAT scan chest abdomen and pelvis in light of breast cancer history but patient declined. Patient will follow up with surgeon all office tomorrow Discharge Plan Departure Patient Disposition: Home Clinical Impression: Breast mass Activity Restrictions/Additional Instructions: Return with new or worsening symptoms. Follow up with breast surgeon tomorrow call office for appointment. Stand Alone Forms: Patient Portal/API
--- NOTE | 2025-08-28 16:44 | PC.NURSE ---
Breast exam deferred to Dr. Norman.
[2025-08-28 17:06] VITALS: PULSE 69; O2SAT 92
[2025-08-28 17:08] VITALS: BP 174/73; PULSE 69; O2SAT 98
--- NOTE | 2025-08-28 17:09 | DI.US.S_ITS ---
US breast RT limited: 08/28/2025. BI-RADS: 0 CLINICAL: 75-year old female for right diagnostic breast ultrasound. Tyrer- Cuzick lifetime risk of 3.1%. PRIOR EXAMS No prior examinations available. ULTRASOUND TECHNIQUE TARGETED Right Breast Ultrasound: Real-time ultrasound exam was performed focused to area of clinical and/or imaging concern. Real-time contreras scale and color doppler imaging of the area of clinical interest was performed with image documentation. ULTRASOUND FINDINGS Right: Outer at 8:30, Retroareolar, measuring 1.7 x 1.6 x 1.9 cm: There is an irregularly shaped, indistinct, hypoechoic mass. There is mild vascularity. IMPRESSION: Right (Mass): Outer at 8:30, Retroareolar, measuring 1.7 x 1.6 x 1.9 cm * Incomplete - Needs additional imaging evaluation. RECOMMENDATIONS Right: Outer at 8:30, Retroareolar * Further evaluation with diagnostic mammography and diagnostic ultrasound (Overall, findings are suspicious for a malignant process given reported history of previous cancer. Outpatient bilateral diagnostic mammogram and bilateral diagnostic breast ultrasound recommended for further evaluation.). COMMENTS: Findings and recommendations were discussed with Dr. Norman at [address] Reed. OVERALL ASSESSMENT CATEGORY BI-RADS-0: Incomplete - Need Additional Imaging Evaluation. ELECTRONICALLY SIGNED: Ramon Reed M.D. on 08/28/2025 at 09:27:05 PM PT Interpreting Station ID: [id number]
[2025-08-28 17:30] VITALS: PULSE 63; O2SAT 99
[2025-08-28 17:31] VITALS: BP 150/66; PULSE 59; RESP 16; O2SAT 98
[2025-08-28 21:43] VITALS: BP 178/73; PULSE 63; RESP 18; O2SAT 98
== END 2025-08-28 21:46 | disposition home or self-care (01) ==
PROVIDERS: Emergency Provider Family Medicine
DX: N64.4 Mastodynia (principal)
CPT/HCPCS: 36415; 76642; 80053; 83605; 85025; 87040; 99283; 99284